=== PATIENT | female | born 2000 | race Two or more races ===

== ENCOUNTER 2018-11-07 18:37 | Emergency (ER) | payer MEDICAID ==
--- NOTE | 2018-11-07 19:33 | RADIOLOGY REPORT (SQ) ---
EXAM DESCRIPTION: ANKLE RIGHT COMPLETE COMPLETED DATE/TIME: 11/07/2018 7:06 pm REASON FOR STUDY: Injured R ankle last week/painful COMPARISON: None. NUMBER OF VIEWS: Three views. TECHNIQUE: AP, lateral, and oblique radiographic images acquired of the right ankle. LIMITATIONS: None. FINDINGS: MINERALIZATION: Normal. BONES: No acute fracture or dislocation. No worrisome bone lesions. JOINTS: No effusions. SOFT TISSUES: Mild soft tissue swelling. OTHER: No other significant finding. IMPRESSION: Mild soft tissue swelling. No fracture. TECHNICAL DOCUMENTATION: JOB ID: [id number] [employer]- All Rights Reserved Reading location - IP/workstation name: [email or web address]
--- NOTE | 2018-11-07 20:09 | ER Document Report ---
HPI - HPI Time Seen by Provider: 11/07/18 19:41 Pain Level: 3 Context: Patient is a 18-year-old female who presents the emergency department with a chief complaint of right ankle pain. She has had this pain since October 28. [place] the park and jumped off of playground set and twisted her ankle. She was seen at [facility] that day and was told she did not have a fracture. She has noticed that her pain and swelling has not gotten any better. She has not been taking Motrin and Tylenol for her pain because she states that it did not work for her when she took it the first time. She has been on crutches and has been using a splint and Alberto wrap. - ROS Systems Reviewed and Negative: Yes All other systems reviewed and negative - CONSTITUTIONAL Constitutional: DENIES: Fever, Chills - RESPIRATORY Respiratory: DENIES: Trouble Breathing - GASTROINTESTINAL Gastrointestinal: DENIES: Abdominal Pain - REPRODUCTIVE Reproductive: DENIES: : - MUSCULOSKELETAL Musculoskeletal: REPORTS: Extremity pain - right ankle - DERM Skin Color: Normal Skin Problems: Bruise - right ankle Past Medical History - General Information source: Patient - Social History Smoking Status: Never Smoker Chew tobacco use (# tins/day): No Frequency of alcohol use: None Drug Abuse: None Family History: Reviewed & Not Pertinent Patient has suicidal ideation: No Patient has homicidal ideation: No Renal/ Medical History: Denies: Hx Peritoneal Dialysis Vertical Provider Document - CONSTITUTIONAL Agree With Documented VS: Yes Exam Limitations: No Limitations General Appearance: No Apparent Distress - HEENT HEENT: Atraumatic, Normocephalic - RESPIRATORY Respiratory: No Respiratory Distress - CARDIOVASCULAR Cardiovascular: Regular Rhythm Pulses: Normal: Posterior tibial, Dorsalis pedis - MUSCULOSKELETAL/EXTREMETIES Musculoskeletal/Extremeties: Tender - right ankle, Edema - right ankle, Eccymosis - right ankle - NEURO Level of Consciousness: Awake, Alert, Appropriate - DERM Integumentary: Warm, Dry Course - Re-evaluation Re-evalutation: 11/07/18 20:09 Patient's x-ray is negative for any acute fracture. She does have swelling to both the medial and lateral aspect of her ankle. She is still able to move her foot, but it is very tender. She has good dorsalis pedis and posterior tibial pulses. I suspect she had sprained her ankle, did not continue Motrin Tylenol to help with her pain and swelling, therefore her injury did not get better. She also worked the next day and has not had any time off of work. She will return home with rest, ice, compression, and elevation to help with her symptoms. I have also strongly suggested that she continue to take Motrin and Tylenol even though it has been a long time, as it will help with her symptoms. I have a very low suspicion for a DVT because the patient only has ankle tender ness and has associated ecchymosis to the are. Verbal discharge instructions were given to the patient. They verbalized understanding. They are stable for discharge. The patient already has crutches, an alberto wrap, and ankle stirrup, from [facility], therefore these items will not be ordered - Vital Signs Vital signs: Temp Pulse Resp BP Pulse Ox 98.2 F 91 16 123/67 100 11/07/18 19:57 11/07/18 19:57 11/07/18 19:57 11/07/18 19:57 11/07/18 19:57 Discharge - Discharge Clinical Impression: Right ankle pain Qualifiers: Chronicity: acute Qualified Code(s): M25.571 - Pain in right ankle and joints of right foot Condition: Stable Disposition: HOME, SELF-CARE Instructions: Alberto Wrap ([facility]), Ankle Stirrup Splint ([facility]), Use of Crutches ([facility]), Sprained Ankle ([facility]) Additional Instructions: You were seen today in the emergency department for right ankle pain. You do not have a fracture at this time. You most likely did injure your ankle, by spraining it. Please continue to use an Alberto wrap, the crutches you have, and the ankle splint you have to help protect your ankle. Please take ibuprofen 600 mg acetaminophen 1000 mg every 6 hours as needed for your pain. Please rest, ice the area, elevate your foot, and put the Alberto wrap on. If you continue to have problems, you can follow-up with your primary care provider. Forms: Return to Work
[2018-11-07] MEDS ORDERED: ACETAMINOPHEN 325 MG TABLET PO ONE (20:15)
[2018-11-07] MEDS ORDERED: IBUPROFEN 600 MG TABLET PO ONE (20:15)
[2018-11-07 20:40] VITALS: BP 102/63
== END 2018-11-07 20:40 | disposition home or self-care (01) ==
LOC: ER 18:37
DX: S90.01XA Contusion of right ankle, initial encounter (principal); M25.571 Pain in right ankle and joints of right foot; X50.0XXA Overexertion from strenuous movement or load, initial encounter; Y93.39 Activity, other involving climbing, rappelling and jumping off; Y92.830 Public park as the place of occurrence of the external cause
CPT/HCPCS: 99283; 73610; J3490 ×2